=== PATIENT | female | born 1970 | race Caucasian/White ===

== ENCOUNTER 2018-10-20 01:31 | Emergency (ER) | payer MEDICAID ==
[~2018-10-20] VITALS: Ht 152.4 cm; Wt 59.0 kg
[2018-10-20 01:35] VITALS: BP_SYST 173
--- NOTE | 2018-10-20 01:35 | NUR ---
Placed in room 1 . Placed on traffic monitor specialist, blood pressure machine and pulse oximeter. To gown for exam. Side rails up.
--- NOTE | 2018-10-20 01:35 | NUR ---
Pt BIB [facility] for okay to book. BP was taken and is 173/113. Pt denies any chest pain, shortness of breath, N/V, fever. Pt has no complaints. Per patient, she "has high blood pressure but does not take medication for it." No other injuries/complaints per patient or noted.
--- NOTE | 2018-10-20 02:05 | NUR ---
ER Dr. Husain at bedside examining patient.
[2018-10-20] MEDS ORDERED: hydrALAZINE HCL 20 MG/ML VIAL IM ONE (02:15)
[2018-10-20] MEDS ORDERED: hydrALAZINE HCL 20 MG/ML VIAL IVP ONE ×2 (02:30→03:00)
--- NOTE | 2018-10-20 02:30 | NUR ---
Medications were given, pt tolerated well.
--- NOTE | 2018-10-20 02:45 | NUR ---
BP is currently 172/113. Dr. Husain aware.
--- NOTE | 2018-10-20 02:53 | NUR ---
Medications were given, pt tolerated well. No adverse reaction, will continue to monitor.
--- NOTE | 2018-10-20 03:21 | NUR ---
BP is now 149/86. Pt stable. no distress or complaints per patient. Dr. Husain aware.
[2018-10-20 03:29] VITALS: BP_SYST 149
--- NOTE | 2018-10-20 03:29 | NUR ---
Patient given written and verbal discharge instructions and verbalizes understanding. ER MD discussed with patient the results and treatment provided. Patient in stable condition. ID arm band removed. IV catheter removed intact and dressing applied, no active bleeding. No Rx given. Patient educated on pain management and to follow up with PMD. Pain Scale 0. Opportunity for questions provided and answered. Medication side effect fact sheet provided. Patient accompanied by CHILANGO.
== END 2018-10-20 03:29 ==
LOC: SED 01:31
DX: I10 Essential (primary) hypertension (principal)
CPT/HCPCS: 93005; 96374; 99283; J0360; 96375

== ENCOUNTER 2020-08-25 17:17 | Emergency (ER) | payer MEDICAID, SELFPAY ==
[~2020-08-25] VITALS: Ht 172.7 cm; Wt 62.6 kg
[2020-08-25 17:23] VITALS: BP_SYST 146
[2020-08-25 18:44] VITALS: BP_SYST 146
== END 2020-08-25 18:44 | disposition home or self-care (01) ==
LOC: SED 17:17
DX: B34.9 Viral infection, unspecified (principal); R50.9 Fever, unspecified; R05 Cough; R63.0 Anorexia; M79.18 Myalgia, other site; I10 Essential (primary) hypertension; Z20.828 Contact with and (suspected) exposure to other viral communicable diseases
CPT/HCPCS: 71045; 93005; 99285; C9803; U0003

== ENCOUNTER 2020-11-16 00:26 | Emergency (ER) | payer MEDICAID, SELFPAY ==
[~2020-11-16] VITALS: Ht 152.4 cm; Wt 59.0 kg
[2020-11-16 00:38] VITALS: BP_SYST 170
[2020-11-16 01:35] LABS: BILIRUBIN,URINE NEGATIVE (NEGATIVE); BLOOD, URINE NEGATIVE (NEGATIVE); CLARITY/URINE CLEAR (CLEAR); COLOR,URINE YELLOW (YELLOW); GLUCOSE,URINE NEGATIVE (NEGATIVE); KETONES,URINE NEGATIVE (NEGATIVE); LEUKOCYTE ESTERASE ,URINE NEGATIVE (NEGATIVE); NITRITE, URINE NEGATIVE (NEGATIVE); PROTEIN URINE NEGATIVE (NEGATIVE); UROBILINOGEN,URINE 0.2 (0.2-1.0)
[2020-11-16 01:51] LABS: CALCIUM 8.2 mg/dL (8.4-11.0); CREATININE 0.74 mg/dL (0.55-1.30); POTASSIUM 3.8 mmol/L (3.5-5.1)
[2020-11-16 01:56] LABS: HEMATOCRIT 29.6 % (36-48); HEMOGLOBIN 9.1 g/dL (12.0-16.0); MEAN CORPUSCULAR HEMOGLOBIN 17 pg (27-31); MEAN CORPUSCULAR HGB CONC 31 % (32-36); MEAN CORPUSCULAR VOLUME 57 fL (79.0-98.0); PLATELET COUNT (AUTO) 528 K/uL (130-430); RED BLOOD CELL COUNT(AUTO) 5.24 MIL/uL (4.2-6.2); RED CELL DISTRIBUTION WIDTH 21.6 % (9.0-15.0); WHITE BLOOD COUNT (AUTO) 8.7 K/uL (4.8-10.8)
[2020-11-16 01:57] LABS: ALBUMIN 3.7 g/dL (3.4-4.8); BASOPHILS % (AUTO) 0.6 % (0.0-2.0); EOSINOPHILS # (AUTO) 0.1 K/uL (0.0-0.4); EOSINOPHILS % (AUTO) 1.6 % (0.0-4.0); LYMPHOCYTES # (AUTO) 1.9 K/uL (1.0-5.5); LYMPHOCYTES % (AUTO) 21.4 % (20.5-51.5); MONOCYTES # (AUTO) 0.8 K/uL (0.0-1.0); MONOCYTES % (AUTO) 8.7 % (1.7-9.3); NEUTROPHILS # (AUTO) 5.9 K/uL (1.8-7.7); NEUTROPHILS % (AUTO) 67.7 % (40.0-70.0); TOTAL BILIRUBIN 0.3 mg/dL (0.0-1.0)
[2020-11-16] MEDS ORDERED: FER300L PO (02:08)
[2020-11-16 02:15] VITALS: BP_SYST 137
== END 2020-11-16 02:15 | disposition home or self-care (01) ==
LOC: SED 00:26
DX: F41.9 Anxiety disorder, unspecified (principal); D64.9 Anemia, unspecified; I10 Essential (primary) hypertension
CPT/HCPCS: 36415; 71045; 80053; 81003; 81025; 84484; 85025; 93005; 99285

== ENCOUNTER 2023-06-11 23:08 | Emergency (ER) | payer MEDICAID ==
[~2023-06-11] VITALS: Ht 152.4 cm; Wt 57.6 kg
[~2023-06-11 23:08] MED LIST: FER300L PO
[2023-06-11 23:40] VITALS: BP_SYST 132; PULSE 84; RESP 16; TEMP 97.3; O2SAT 99
[2023-06-12] MEDS ORDERED: ONDANSETRON HCL 4 MG/2 ML VIAL IVP ONE (00:15)
[2023-06-12] MEDS ORDERED: NACL 0.9% 1,000 ML IV ONE (00:15)
[2023-06-12] MEDS ORDERED: KETOROLAC TROMETHAMINE 30 MG VIAL IVP ONE (00:15)
[2023-06-12 00:55] LABS: BASOPHILS % (AUTO) 0.5 % (0.0-2.0); EOSINOPHILS # (AUTO) 0.2 K/uL (0.0-0.4); EOSINOPHILS % (AUTO) 2.2 % (0.0-4.0); HEMATOCRIT 36.3 % (36-48); LYMPHOCYTES # (AUTO) 1.9 K/uL (1.0-5.5); LYMPHOCYTES % (AUTO) 19.5 % (20.5-51.5); MEAN CORPUSCULAR HEMOGLOBIN 25 pg (27-31); MEAN CORPUSCULAR HGB CONC 33 % (32-36); MEAN CORPUSCULAR VOLUME 75 fL (79.0-98.0); MONOCYTES % (AUTO) 10.3 % (1.7-9.3); NEUTROPHILS # (AUTO) 6.7 K/uL (1.8-7.7); NEUTROPHILS % (AUTO) 67.5 % (40.0-70.0); PLATELET COUNT (AUTO) 347 K/uL (130-430); RED BLOOD CELL COUNT(AUTO) 4.84 MIL/uL (4.2-6.2); RED CELL DISTRIBUTION WIDTH 17.6 % (9.0-15.0); WHITE BLOOD COUNT (AUTO) 9.9 K/uL (4.8-10.8)
[2023-06-12 00:59] LABS: CALCIUM 8.2 mg/dL (8.4-11.0); CREATININE 0.6 mg/dL (0.55-1.30); POTASSIUM 3.5 mmol/L (3.5-5.1)
[2023-06-12 01:12] LABS: ALBUMIN 2.9 g/dL (3.4-4.8); TOTAL BILIRUBIN 0.2 mg/dL (0.0-1.0); TOTAL PROTEIN, SERUM 5.7 g/dL (6.4-8.3)
[2023-06-12 01:49] LABS: BILIRUBIN,URINE NEGATIVE (NEGATIVE); BLOOD, URINE NEGATIVE (NEGATIVE); COLOR,URINE YELLOW (YELLOW); GLUCOSE,URINE NEGATIVE (NEGATIVE); KETONES,URINE NEGATIVE (NEGATIVE); LEUKOCYTE ESTERASE ,URINE TRACE (NEGATIVE); NITRITE, URINE NEGATIVE (NEGATIVE); PROTEIN URINE NEGATIVE (NEGATIVE); UROBILINOGEN,URINE 0.2 (0.2-1.0)
[2023-06-12 01:57] LABS: CLARITY/URINE SLIGHTLY CLOUDY (CLEAR)
[2023-06-12 01:59] LABS: BACTERIA,URINE FEW /HPF (None Seen); RBC,URINE 0-3 /HPF (0-3)
[2023-06-12] MEDS ORDERED: FAMO-132 PO (01:59)
[2023-06-12] MEDS ORDERED: ONDA-8 TL (01:59)
[2023-06-12] MEDS ORDERED: CEPH250C PO (02:05)
[2023-06-12] MEDS ORDERED: PHEN-726 PO (02:05)
[2023-06-12 02:20] VITALS: BP_SYST 123; PULSE 68; RESP 19; O2SAT 96
== END 2023-06-12 02:20 | disposition home or self-care (01) ==
LOC: SED 23:08
DX: N39.0 Urinary tract infection, site not specified (principal); R11.2 Nausea with vomiting, unspecified; R19.7 Diarrhea, unspecified; I10 Essential (primary) hypertension; Z79.899 Other long term (current) drug therapy
CPT/HCPCS: 99284; 80053; 81001; 83690; 85025; 87086; 36415; 81000; 96374; 96361; 96375; 81015; J1885; J2405; J7030

== ENCOUNTER 2023-06-23 22:35 | Emergency (ER) | payer MEDICAID ==
[~2023-06-23] VITALS: Ht 152.4 cm; Wt 57.6 kg
[~2023-06-23 22:35] MED LIST changes: +CEPH250C PO; +FAMO-132 PO; +ONDA-8 TL; +PHEN-726 PO
[2023-06-23 22:40] VITALS: BP_SYST 151; PULSE 99; RESP 16; TEMP 97.8; O2SAT 97
[2023-06-23 23:35] LABS: BASOPHILS % (AUTO) 0.4 % (0.0-2.0); EOSINOPHILS # (AUTO) 0.1 K/uL (0.0-0.4); EOSINOPHILS % (AUTO) 1.7 % (0.0-4.0); HEMATOCRIT 42.3 % (36-48); HEMOGLOBIN 13.9 g/dL (12.0-16.0); LYMPHOCYTES # (AUTO) 2.2 K/uL (1.0-5.5); LYMPHOCYTES % (AUTO) 26.1 % (20.5-51.5); MEAN CORPUSCULAR HEMOGLOBIN 25 pg (27-31); MEAN CORPUSCULAR HGB CONC 33 % (32-36); MEAN CORPUSCULAR VOLUME 75 fL (79.0-98.0); MONOCYTES # (AUTO) 0.9 K/uL (0.0-1.0); MONOCYTES % (AUTO) 10.6 % (1.7-9.3); NEUTROPHILS % (AUTO) 61.2 % (40.0-70.0); PLATELET COUNT (AUTO) 521 K/uL (130-430); RED BLOOD CELL COUNT(AUTO) 5.63 MIL/uL (4.2-6.2); RED CELL DISTRIBUTION WIDTH 17.8 % (9.0-15.0); WHITE BLOOD COUNT (AUTO) 8.3 K/uL (4.8-10.8)
[2023-06-23 23:56] LABS: CALCIUM 9.5 mg/dL (8.4-11.0); CREATININE 0.56 mg/dL (0.55-1.30); POTASSIUM 3.7 mmol/L (3.5-5.1)
[2023-06-24 00:03] LABS: ALBUMIN 3.8 g/dL (3.4-4.8); TOTAL BILIRUBIN 0.4 mg/dL (0.0-1.0); TOTAL PROTEIN, SERUM 7.6 g/dL (6.4-8.3)
[2023-06-24 02:49] LABS: BILIRUBIN,URINE NEGATIVE (NEGATIVE); BLOOD, URINE NEGATIVE (NEGATIVE); CLARITY/URINE CLEAR (CLEAR); COLOR,URINE YELLOW (YELLOW); GLUCOSE,URINE NEGATIVE (NEGATIVE); KETONES,URINE NEGATIVE (NEGATIVE); LEUKOCYTE ESTERASE ,URINE NEGATIVE (NEGATIVE); NITRITE, URINE NEGATIVE (NEGATIVE); PROTEIN URINE NEGATIVE (NEGATIVE); UROBILINOGEN,URINE 0.2 (0.2-1.0)
[2023-06-24 03:42] VITALS: BP_SYST 130; PULSE 99; RESP 16; TEMP 97.8; O2SAT 97
== END 2023-06-24 03:49 | disposition home or self-care (01) ==
LOC: SED 22:35
DX: M54.16 Radiculopathy, lumbar region (principal); M54.50 Low back pain, unspecified; I10 Essential (primary) hypertension; Z79.899 Other long term (current) drug therapy
CPT/HCPCS: 36415; 80053; 81001; 81003; 85025; 85379; 99283

== ENCOUNTER 2023-06-25 23:39 | Emergency (ER) | payer MEDICAID ==
[~2023-06-25] VITALS: Ht 157.5 cm; Wt 59.0 kg
[2023-06-25 23:53] VITALS: BP_SYST 170; PULSE 75; RESP 19; TEMP 97.9; O2SAT 97
[2023-06-26] MEDS ORDERED: LIDO1ADH71 TD (00:35)
[2023-06-26 00:45] VITALS: BP_SYST 175; PULSE 80; RESP 16; O2SAT 98
== END 2023-06-26 00:45 | disposition home or self-care (01) ==
LOC: SED 23:39
DX: M54.6 Pain in thoracic spine (principal); I10 Essential (primary) hypertension; Z79.899 Other long term (current) drug therapy
CPT/HCPCS: 99283

== ENCOUNTER 2023-08-27 23:31 | Emergency (ER) | payer MEDICAID ==
[~2023-08-27] VITALS: Ht 152.4 cm; Wt 56.7 kg
[~2023-08-27 23:31] MED LIST changes: +LIDO1ADH71 TD
[2023-08-27 23:35] VITALS: BP_SYST 152; PULSE 97; RESP 17; TEMP 97.3; O2SAT 99
[2023-08-28 00:42] LABS: INFLUENZA TYPE A Negative (NEGATIVE); INFLUENZA TYPE B NEGATIVE (NEGATIVE)
[2023-08-28] MEDS ORDERED: LISI10TA29 PO (01:13)
[2023-08-28] MEDS ORDERED: AMLO5TAB4 PO (01:13)
[2023-08-28 01:20] VITALS: BP_SYST 152; PULSE 97; RESP 17; TEMP 97.3; O2SAT 99
== END 2023-08-28 01:20 | disposition home or self-care (01) ==
LOC: SED 23:31
DX: B34.9 Viral infection, unspecified (principal); I10 Essential (primary) hypertension; R50.9 Fever, unspecified; R05.9 Cough, unspecified; R09.81 Nasal congestion; Z79.899 Other long term (current) drug therapy; Z20.822 Contact with and (suspected) exposure to COVID-19
CPT/HCPCS: 36415; 99283

== ENCOUNTER 2023-09-10 19:42 | Emergency (ER) | payer MEDICAID ==
[~2023-09-10] VITALS: Ht 152.4 cm; Wt 57.6 kg
[~2023-09-10 19:42] MED LIST changes: +AMLO5TAB4 PO; +LISI10TA29 PO
[2023-09-10 20:30] VITALS: BP_SYST 135; PULSE 91; RESP 16; TEMP 97.4; O2SAT 97
[2023-09-10 21:11] VITALS: BP_SYST 135; PULSE 91; RESP 16; TEMP 97.4; O2SAT 97
[2023-09-10 22:15] LABS: COVID19 ANTIGEN SOFIA FIA NEGATIVE (NEGATIVE); INFLUENZA TYPE A Negative (NEGATIVE); INFLUENZA TYPE B NEGATIVE (NEGATIVE)
[2023-09-10 23:12] LABS: BASOPHILS % (AUTO) 0.5 % (0.0-2.0); EOSINOPHILS # (AUTO) 0.2 K/uL (0.0-0.4); EOSINOPHILS % (AUTO) 2.8 % (0.0-4.0); HEMATOCRIT 39.7 % (36-48); HEMOGLOBIN 13.5 g/dL (12.0-16.0); LYMPHOCYTES # (AUTO) 3.2 K/uL (1.0-5.5); LYMPHOCYTES % (AUTO) 36.5 % (20.5-51.5); MEAN CORPUSCULAR HEMOGLOBIN 26 pg (27-31); MEAN CORPUSCULAR HGB CONC 34 % (32-36); MEAN CORPUSCULAR VOLUME 75 fL (79.0-98.0); MONOCYTES # (AUTO) 1.1 K/uL (0.0-1.0); MONOCYTES % (AUTO) 12.9 % (1.7-9.3); NEUTROPHILS # (AUTO) 4.1 K/uL (1.8-7.7); NEUTROPHILS % (AUTO) 47.3 % (40.0-70.0); PLATELET COUNT (AUTO) 500 K/uL (130-430); RED BLOOD CELL COUNT(AUTO) 5.26 MIL/uL (4.2-6.2); RED CELL DISTRIBUTION WIDTH 17.5 % (9.0-15.0); WHITE BLOOD COUNT (AUTO) 8.6 K/uL (4.8-10.8)
[2023-09-10 23:21] LABS: BILIRUBIN,URINE NEGATIVE (NEGATIVE); BLOOD, URINE NEGATIVE (NEGATIVE); CLARITY/URINE CLEAR (CLEAR); COLOR,URINE YELLOW (YELLOW); GLUCOSE,URINE NEGATIVE (NEGATIVE); KETONES,URINE NEGATIVE (NEGATIVE); LEUKOCYTE ESTERASE ,URINE NEGATIVE (NEGATIVE); NITRITE, URINE NEGATIVE (NEGATIVE); PROTEIN URINE NEGATIVE (NEGATIVE); UROBILINOGEN,URINE 0.2 (0.2-1.0)
[2023-09-10 23:39] LABS: CALCIUM 8.8 mg/dL (8.4-11.0); CREATININE 0.73 mg/dL (0.55-1.30); POTASSIUM 3.5 mmol/L (3.5-5.1)
[2023-09-10 23:43] LABS: ALBUMIN 3.4 g/dL (3.4-4.8); BILIRUBIN,DIRECT 0.1 mg/dL (0.0-0.3); TOTAL BILIRUBIN 0.3 mg/dL (0.0-1.0); TOTAL PROTEIN, SERUM 6.7 g/dL (6.4-8.3)
== END 2023-09-11 02:13 | disposition home or self-care (01) ==
LOC: SED 19:42
DX: S39.011A Strain of muscle, fascia and tendon of abdomen, initial encounter (principal); I10 Essential (primary) hypertension; Z79.899 Other long term (current) drug therapy; Z20.822 Contact with and (suspected) exposure to COVID-19; X58.XXXA Exposure to other specified factors, initial encounter; Y93.89 Activity, other specified; Y92.89 Other specified places as the place of occurrence of the external cause; Y99.8 Other external cause status
CPT/HCPCS: 36415; 76376; 80048; 80076; 81001; 81003; 81025; 85025; 99284

== ENCOUNTER 2023-10-06 23:41 | Emergency (ER) | payer MEDICAID ==
[~2023-10-06] VITALS: Ht 152.4 cm; Wt 56.7 kg
[2023-10-06 23:47] VITALS: BP_SYST 152; PULSE 102; RESP 22; TEMP 97.3; O2SAT 98
[2023-10-07 01:08] LABS: INFLUENZA TYPE A Negative (NEGATIVE); INFLUENZA TYPE B NEGATIVE (NEGATIVE)
[2023-10-07 01:20] VITALS: BP_SYST 154; PULSE 91; RESP 16; TEMP 97.5; O2SAT 96
== END 2023-10-07 01:20 | disposition home or self-care (01) ==
LOC: SED 23:41
DX: B34.9 Viral infection, unspecified (principal); I10 Essential (primary) hypertension; Z79.899 Other long term (current) drug therapy; Z20.822 Contact with and (suspected) exposure to COVID-19
CPT/HCPCS: 36415; 99283

== ENCOUNTER 2023-11-26 23:21 | Emergency (ER) | payer BC ==
[~2023-11-26] VITALS: Ht 152.4 cm; Wt 57.2 kg
[2023-11-26 23:36] VITALS: BP_SYST 154; PULSE 79; RESP 16; TEMP 97.5; O2SAT 96
[2023-11-26] MEDS ORDERED: ZAN4 PO (23:46)
[2023-11-26] MEDS ORDERED: DICL75TA5 PO (23:46)
[2023-11-26] MEDS: KETOROLAC TROMETHAMINE 30 MG VIAL IM ONE (23:53)
[2023-11-26 23:57] VITALS: BP_SYST 154; PULSE 79; RESP 16; TEMP 97.5; O2SAT 96
== END 2023-11-26 23:56 | disposition home or self-care (01) ==
LOC: SED 23:21
DX: M54.12 Radiculopathy, cervical region (principal); I10 Essential (primary) hypertension
CPT/HCPCS: 99283; 96372; J1885

== ENCOUNTER 2023-11-27 23:38 | Emergency (ER) | payer BC ==
[~2023-11-27] VITALS: Ht 152.4 cm; Wt 59.0 kg
[~2023-11-27 23:38] MED LIST changes: +DICL75TA5 PO; +ZAN4 PO
[2023-11-27 23:55] VITALS: BP_SYST 180; PULSE 66; RESP 16; TEMP 97.1; O2SAT 98
[2023-11-28] MEDS: MORPHINE 4 MG INJ. 4 MG/ML VIAL IM ONE (00:46)
[2023-11-28] MEDS: KETOROLAC TROMETHAMINE 60 MG/2 ML VIAL IM ONE (00:49)
[2023-11-28 01:10] VITALS: BP_SYST 180; PULSE 66; RESP 16; TEMP 97.1; O2SAT 98
== END 2023-11-28 01:10 | disposition home or self-care (01) ==
LOC: SED 23:38
DX: M54.2 Cervicalgia (principal); I10 Essential (primary) hypertension; Z79.899 Other long term (current) drug therapy
CPT/HCPCS: 99284; 96372; J1885; J2270

== ENCOUNTER 2023-12-15 23:08 | Emergency (ER) | payer BC, MEDICAID ==
[~2023-12-15] VITALS: Ht 152.4 cm; Wt 57.6 kg
[2023-12-15 23:12] VITALS: BP_SYST 128; PULSE 89; RESP 18; TEMP 98.4; O2SAT 98
== END 2023-12-15 23:32 | disposition home or self-care (01) ==
LOC: SED 23:08
DX: M79.644 Pain in right finger(s) (principal); I10 Essential (primary) hypertension
CPT/HCPCS: 99281

== ENCOUNTER 2024-02-03 00:38 | Emergency (ER) | payer BC, MEDICAID ==
[~2024-02-03] VITALS: Ht 152.4 cm; Wt 57.6 kg
[2024-02-03 00:57] VITALS: BP_SYST 149; PULSE 85; RESP 18; TEMP 97.7; O2SAT 97
[2024-02-03] MEDS ORDERED: LOPE2CAP PO (01:22)
[2024-02-03] MEDS: DIPHENOXYLATE HCL/ATROP SULF 2.5 MG TAB PO ONE (01:28)
[2024-02-03 01:40] VITALS: BP_SYST 149; PULSE 85; RESP 18; TEMP 97.7; O2SAT 97
== END 2024-02-03 01:35 | disposition home or self-care (01) ==
LOC: SED 00:38
DX: R19.7 Diarrhea, unspecified (principal); I10 Essential (primary) hypertension; Z79.899 Other long term (current) drug therapy; Z79.2 Long term (current) use of antibiotics
CPT/HCPCS: 99283

== ENCOUNTER 2024-03-03 23:24 | Emergency (ER) | payer BC, MEDICAID ==
[~2024-03-03] VITALS: Ht 152.4 cm; Wt 57.6 kg
[~2024-03-03 23:24] MED LIST changes: +LOPE2CAP PO
[2024-03-03 23:50] VITALS: BP_SYST 160; PULSE 84; RESP 17; TEMP 97.3; O2SAT 96
[2024-03-04 00:35] VITALS: BP_SYST 160; PULSE 84; RESP 17; TEMP 97.3; O2SAT 96
== END 2024-03-04 00:34 | disposition home or self-care (01) ==
LOC: SED 23:24
DX: S60.222A Contusion of left hand, initial encounter (principal); I10 Essential (primary) hypertension; Z79.899 Other long term (current) drug therapy; Z79.2 Long term (current) use of antibiotics; X50.0XXA Overexertion from strenuous movement or load, initial encounter; Y93.89 Activity, other specified; Y92.89 Other specified places as the place of occurrence of the external cause; Y99.8 Other external cause status
CPT/HCPCS: 99283

== ENCOUNTER 2024-03-14 23:17 | Emergency (ER) | payer BC, MEDICAID ==
[~2024-03-14] VITALS: Ht 152.4 cm; Wt 59.0 kg
[2024-03-14 23:23] VITALS: BP_SYST 132; PULSE 87; RESP 17; TEMP 97.3; O2SAT 97
[2024-03-15 00:29] LABS: BILIRUBIN,URINE NEGATIVE (NEGATIVE); CLARITY/URINE CLEAR (CLEAR); COLOR,URINE YELLOW (YELLOW); GLUCOSE,URINE NEGATIVE (NEGATIVE); KETONES,URINE NEGATIVE (NEGATIVE); LEUKOCYTE ESTERASE ,URINE NEGATIVE (NEGATIVE); NITRITE, URINE NEGATIVE (NEGATIVE); PROTEIN URINE NEGATIVE (NEGATIVE); UROBILINOGEN,URINE 0.2 (0.2-1.0)
[2024-03-15 00:51] LABS: BLOOD, URINE TRACE (NEGATIVE)
[2024-03-15 00:52] LABS: BACTERIA,URINE FEW /HPF (None Seen); WBC,URINE 0-3 /HPF (0-3)
[2024-03-15] MEDS ORDERED: CEPH250C PO (01:13)
== END 2024-03-15 01:25 | disposition home or self-care (01) ==
LOC: SED 23:17
DX: N39.0 Urinary tract infection, site not specified (principal); R10.9 Unspecified abdominal pain; I10 Essential (primary) hypertension; Z79.899 Other long term (current) drug therapy; Z79.2 Long term (current) use of antibiotics
CPT/HCPCS: 81000; 81001; 81015; 99283

== ENCOUNTER 2024-03-22 23:17 | Emergency (ER) | payer BC, MEDICAID ==
[~2024-03-22] VITALS: Ht 152.4 cm; Wt 59.0 kg
[2024-03-22 23:26] VITALS: BP_SYST 178; PULSE 90; RESP 20; TEMP 98; O2SAT 97
[2024-03-23] MEDS: KETOROLAC TROMETHAMINE 30 MG VIAL IVP ONE (00:33)
[2024-03-23] MEDS: ONDANSETRON HCL 4 MG/2 ML VIAL IVP ONE (00:33)
[2024-03-23] MEDS: NACL 0.9% 1,000 ML IV ONE (00:34)
[2024-03-23 00:49] LABS: BASOPHILS # (AUTO) 0.1 K/uL (0.0-0.2); EOSINOPHILS # (AUTO) 0.2 K/uL (0.0-0.4); EOSINOPHILS % (AUTO) 2.8 % (0.0-4.0); HEMATOCRIT 39.4 % (36-48); HEMOGLOBIN 13.6 g/dL (12.0-16.0); LYMPHOCYTES # (AUTO) 1.7 K/uL (1.0-5.5); LYMPHOCYTES % (AUTO) 27.5 % (20.5-51.5); MEAN CORPUSCULAR HEMOGLOBIN 26 pg (27-31); MEAN CORPUSCULAR HGB CONC 34 % (32-36); MEAN CORPUSCULAR VOLUME 76 fL (79.0-98.0); MONOCYTES # (AUTO) 0.7 K/uL (0.0-1.0); NEUTROPHILS # (AUTO) 3.5 K/uL (1.8-7.7); NEUTROPHILS % (AUTO) 56.7 % (40.0-70.0); PLATELET COUNT (AUTO) 401 K/uL (130-430); RED BLOOD CELL COUNT(AUTO) 5.18 MIL/uL (4.2-6.2); RED CELL DISTRIBUTION WIDTH 16.5 % (9.0-15.0); WHITE BLOOD COUNT (AUTO) 6.2 K/uL (4.8-10.8)
[2024-03-23 01:06] LABS: ALBUMIN 3.5 g/dL (3.4-4.8); BILIRUBIN,DIRECT 0.1 mg/dL (0.0-0.3); CALCIUM 8.9 mg/dL (8.4-11.0); CREATININE 0.7 mg/dL (0.55-1.30); POTASSIUM 3.6 mmol/L (3.5-5.1); TOTAL BILIRUBIN 0.3 mg/dL (0.0-1.0)
[2024-03-23] MEDS: DEXAMETHASONE SOD PHOSPHATE 10 MG/ML VIAL IVP ONE (01:29)
[2024-03-23] MEDS ORDERED: METH-776 PO (01:31)
[2024-03-23] MEDS ORDERED: HYDR-3917 PO (01:31)
[2024-03-23 01:45] VITALS: BP_SYST 160; PULSE 90; RESP 20; TEMP 98; O2SAT 98
[2024-03-23 02:16] LABS: BILIRUBIN,URINE NEGATIVE (NEGATIVE); CLARITY/URINE CLEAR (CLEAR); COLOR,URINE YELLOW (YELLOW); GLUCOSE,URINE NEGATIVE (NEGATIVE); KETONES,URINE NEGATIVE (NEGATIVE); LEUKOCYTE ESTERASE ,URINE NEGATIVE (NEGATIVE); NITRITE, URINE NEGATIVE (NEGATIVE); PH,URINE 6.5 (5.0-8.0); PROTEIN URINE NEGATIVE (NEGATIVE); UROBILINOGEN,URINE 0.2 (0.2-1.0)
[2024-03-23 02:48] LABS: BLOOD, URINE TRACE (NEGATIVE)
[2024-03-23 02:50] LABS: BACTERIA,URINE RARE /HPF (None Seen); WBC,URINE 0-3 /HPF (0-3)
== END 2024-03-23 01:43 | disposition home or self-care (01) ==
LOC: SED 23:17
DX: M54.9 Dorsalgia, unspecified (principal); M54.50 Low back pain, unspecified; F17.200 Nicotine dependence, unspecified, uncomplicated; I10 Essential (primary) hypertension; Z79.899 Other long term (current) drug therapy; Z79.2 Long term (current) use of antibiotics
CPT/HCPCS: 99284; 80076; 80048; 81001; 83690; 85025; 36415; 81000; 96374; 96375; 96361; 81015; J1100; J1885; J2405; J7030

== ENCOUNTER 2024-06-09 23:24 | Emergency (ER) | payer BC, MEDICAID ==
[~2024-06-09] VITALS: Ht 152.4 cm; Wt 59.0 kg
[~2024-06-09 23:24] MED LIST changes: +HYDR-3917 PO; +METH-776 PO
[2024-06-10 00:19] VITALS: BP_SYST 215; PULSE 91; RESP 16; TEMP 97.2; O2SAT 96
[2024-06-10 02:33] LABS: BILIRUBIN,URINE NEGATIVE (NEGATIVE); CLARITY/URINE CLEAR (CLEAR); COLOR,URINE YELLOW (YELLOW); GLUCOSE,URINE NEGATIVE (NEGATIVE); KETONES,URINE TRACE (NEGATIVE); LEUKOCYTE ESTERASE ,URINE NEGATIVE (NEGATIVE); NITRITE, URINE NEGATIVE (NEGATIVE); PROTEIN URINE NEGATIVE (NEGATIVE); UROBILINOGEN,URINE 0.2 (0.2-1.0)
[2024-06-10 02:39] LABS: BLOOD, URINE TRACE (NEGATIVE)
[2024-06-10 02:52] LABS: BACTERIA,URINE RARE /HPF (None Seen); RBC,URINE 0-3 /HPF (0-3); WBC,URINE 0-3 /HPF (0-3)
[2024-06-10] MEDS: LABETALOL HCL 20 MG/4 ML CARTRIDGE IVP ONE (02:59)
[2024-06-10 03:26] LABS: BASOPHILS # (AUTO) 0.1 K/uL (0.0-0.2); BASOPHILS % (AUTO) 0.8 % (0.0-2.0); EOSINOPHILS # (AUTO) 0.3 K/uL (0.0-0.4); EOSINOPHILS % (AUTO) 3.5 % (0.0-4.0); HEMATOCRIT 38.8 % (36-48); HEMOGLOBIN 12.9 g/dL (12.0-16.0); LYMPHOCYTES # (AUTO) 3.3 K/uL (1.0-5.5); LYMPHOCYTES % (AUTO) 41.7 % (20.5-51.5); MEAN CORPUSCULAR HEMOGLOBIN 26 pg (27-31); MEAN CORPUSCULAR HGB CONC 33 % (32-36); MEAN CORPUSCULAR VOLUME 77 fL (79.0-98.0); MONOCYTES # (AUTO) 0.8 K/uL (0.0-1.0); MONOCYTES % (AUTO) 9.7 % (1.7-9.3); NEUTROPHILS # (AUTO) 3.6 K/uL (1.8-7.7); NEUTROPHILS % (AUTO) 44.3 % (40.0-70.0); PLATELET COUNT (AUTO) 387 K/uL (130-430); RED BLOOD CELL COUNT(AUTO) 5.01 MIL/uL (4.2-6.2); RED CELL DISTRIBUTION WIDTH 16.8 % (9.0-15.0)
[2024-06-10 03:34] LABS: ALBUMIN 3.1 g/dL (3.4-4.8); BILIRUBIN,DIRECT 0.1 mg/dL (0.0-0.3); CALCIUM 8.7 mg/dL (8.4-11.0); CREATININE 0.78 mg/dL (0.55-1.30); POTASSIUM 3.5 mmol/L (3.5-5.1); TOTAL BILIRUBIN 0.1 mg/dL (0.0-1.0); TOTAL PROTEIN, SERUM 6.2 g/dL (6.4-8.3)
[2024-06-10] MEDS ORDERED: AMLO5TAB4 PO (03:57)
[2024-06-10] MEDS ORDERED: LISI1TAB57 PO (03:57)
[2024-06-10 04:09] VITALS: BP_SYST 148; PULSE 76; RESP 18; TEMP 97.2; O2SAT 98
== END 2024-06-10 04:03 | disposition home or self-care (01) ==
LOC: SED 23:24
DX: S39.011A Strain of muscle, fascia and tendon of abdomen, initial encounter (principal); N39.0 Urinary tract infection, site not specified; I10 Essential (primary) hypertension; Z79.1 Long term (current) use of non-steroidal anti-inflammatories (NSAID); Z79.899 Other long term (current) drug therapy; X58.XXXA Exposure to other specified factors, initial encounter; Y93.89 Activity, other specified; Y92.89 Other specified places as the place of occurrence of the external cause; Y99.8 Other external cause status
CPT/HCPCS: 36415; 80048; 80076; 81000; 81001; 81015; 85025; 96374; 99285

== ENCOUNTER 2024-06-14 23:36 | Emergency (ER) | payer BC, MEDICAID ==
[~2024-06-14] VITALS: Ht 152.4 cm; Wt 61.2 kg
[~2024-06-14 23:36] MED LIST changes: +LISI1TAB57 PO
[2024-06-14 23:46] VITALS: BP_SYST 144; PULSE 91; RESP 16; TEMP 96.3; O2SAT 99
[2024-06-15 00:21] LABS: BILIRUBIN,URINE NEGATIVE (NEGATIVE); CLARITY/URINE CLEAR (CLEAR); COLOR,URINE YELLOW (YELLOW); GLUCOSE,URINE NEGATIVE (NEGATIVE); KETONES,URINE NEGATIVE (NEGATIVE); LEUKOCYTE ESTERASE ,URINE NEGATIVE (NEGATIVE); NITRITE, URINE NEGATIVE (NEGATIVE); PROTEIN URINE NEGATIVE (NEGATIVE); UROBILINOGEN,URINE 0.2 (0.2-1.0)
[2024-06-15 00:37] LABS: BLOOD, URINE TRACE (NEGATIVE)
[2024-06-15 00:40] LABS: BACTERIA,URINE None Seen /HPF (None Seen); WBC,URINE 0-3 /HPF (0-3)
[2024-06-15 01:02] VITALS: BP_SYST 140; PULSE 86; RESP 16; TEMP 96.3; O2SAT 99
== END 2024-06-15 01:02 | disposition home or self-care (01) ==
LOC: SED 23:36
DX: H81.10 Benign paroxysmal vertigo, unspecified ear (principal); I10 Essential (primary) hypertension; Z91.018 Allergy to other foods; Z79.1 Long term (current) use of non-steroidal anti-inflammatories (NSAID); Z79.899 Other long term (current) drug therapy
CPT/HCPCS: 81000; 81001; 81015; 99283